=== PATIENT | male | born 1975 | race Caucasian/White ===

== ENCOUNTER 2023-06-30 17:23 | Emergency (ER) | payer BC ==
[~2023-06-30] VITALS: Ht 180.3 cm; Wt 113.6 kg
[2023-06-30 17:34] VITALS: TEMP 98.7
[2023-06-30] MEDS ORDERED: Iohexol 350 - 100 ML VIAL IV ONE (19:01)
[2023-06-30] MEDS ORDERED: NS 50 ML IV ONE (19:01)
[2023-06-30 19:47] VITALS: BP 153/82; PULSE 91
== END 2023-06-30 21:05 | disposition home or self-care (01) ==
LOC: COL.ER 17:23
DX: J11.1 Influenza due to unidentified influenza virus with other respiratory manifestations (principal); R59.0 Localized enlarged lymph nodes; R91.1 Solitary pulmonary nodule; Z87.891 Personal history of nicotine dependence
CPT/HCPCS: Q9967